=== PATIENT | female | born 1995 | race Caucasian/White ===

== ENCOUNTER 2016-10-28 12:07 | Emergency (ER) | payer MEDICAID ==
[~2016-10-28] VITALS: Ht 162.6 cm; Wt 63.0 kg
[2016-10-28 12:45] VITALS: BP 106/70
== END 2016-10-28 13:33 | disposition home or self-care (01) ==
LOC: ER 13:26
DX: J32.9 Chronic sinusitis, unspecified (principal); H66.92 Otitis media, unspecified, left ear; R19.7 Diarrhea, unspecified
CPT/HCPCS: 99283

== ENCOUNTER 2016-11-28 21:33 | Emergency (ER) | payer MEDICAID ==
[~2016-11-28] VITALS: Ht 160 cm; Wt 65.0 kg
[2016-11-29 04:17] VITALS: BP 120/76
== END 2016-11-29 08:46 | disposition home or self-care (01) ==
LOC: ER 11-29 08:46
DX: B00.9 Herpesviral infection, unspecified (principal); F12.10 Cannabis abuse, uncomplicated
CPT/HCPCS: 99283; Z7610

== ENCOUNTER 2016-12-27 21:04 | Emergency (ER) | payer MEDICAID ==
[~2016-12-27] VITALS: Ht 160 cm; Wt 59.0 kg
[2016-12-27 21:17] VITALS: BP 112/71
== END 2016-12-27 21:40 | disposition left against medical advice (07) ==
LOC: ER 21:27
DX: M79.604 Pain in right leg (principal); Z53.21 Procedure and treatment not carried out due to patient leaving prior to being seen by health care provider

== ENCOUNTER 2016-12-29 13:48 | Emergency (ER) | payer MEDICAID ==
[~2016-12-29] VITALS: Ht 160 cm; Wt 61.0 kg
[2016-12-29 13:56] VITALS: BP 118/70
== END 2016-12-29 19:23 | disposition left against medical advice (07) ==
LOC: ER 18:57
DX: Z53.21 Procedure and treatment not carried out due to patient leaving prior to being seen by health care provider (principal)

== ENCOUNTER 2017-01-25 13:04 | Emergency (ER) | payer MEDICAID ==
[~2017-01-25] VITALS: Ht 160 cm; Wt 61.0 kg
[2017-01-25] MEDS ORDERED: SODIUM CHLORIDE 0.9% 1,000 ML IV ONE (17:52)
[2017-01-25 18:57] LABS: CLARITY URINE CLEAR (CLEAR); COLOR URINE YELLOW (YELLOW); GLUCOSE URINE NEGATIVE (NEGATIVE); KETONES URINE NEGATIVE (NEGATIVE); LEUKOCYTE ESTERASE URINE TRACE (NEGATIVE); NITRITE URINE NEGATIVE (NEGATIVE); OCCULT BLOOD URINE NEGATIVE (NEGATIVE); PROTEIN URINE NEGATIVE (NEGATIVE); SPECIFIC GRAVITY URINE 1.025 (1.005-1.030); UROBILINOGEN URINE 0.2 E.U./dL (0.2-1.0)
[2017-01-25 19:15] LABS: *AMPHETAMINES SCREEN URINE NEGATIVE (NEGATIVE); *BARBITURATES SCREEN URINE NEGATIVE (NEGATIVE); *BENZODIAZEPINES SCREEN URINE NEGATIVE (NEGATIVE); *COCAINE SCREEN URINE NEGATIVE (NEGATIVE); CANNABINOID URINE SCREEN PRESUMTIVE POSITIVE (NEGATIVE); METHADONE URINE SCREEN NEGATIVE (NEGATIVE); OPIATES URINE SCREEN NEGATIVE (NEGATIVE); PHENCYCLIDINE URINE SCREEN NEGATIVE (NEGATIVE)
[2017-01-25 19:42] VITALS: BP 109/71
== END 2017-01-25 19:43 | disposition home or self-care (01) ==
LOC: ER 13:04
DX: K29.00 Acute gastritis without bleeding (principal); F12.10 Cannabis abuse, uncomplicated; R03.0 Elevated blood-pressure reading, without diagnosis of hypertension
CPT/HCPCS: 80305; 81001; 81025; 93005; 99285; Z7610; J7030

== ENCOUNTER 2017-04-28 08:32 | Emergency (ER) | payer MEDICAID ==
[~2017-04-28] VITALS: Ht 162.6 cm; Wt 73.0 kg
[2017-04-28] MEDS ORDERED: KETOROLAC 60MG/2ML VIAL IM STA (11:27)
[2017-04-28] MEDS ORDERED: BACITRACIN ZINC OINT UDPKT TOP ONE (11:30)
[2017-04-28] MEDS ORDERED: LIDOCAINE HCL 1% 20ML VIAL (Pyxis) INJ MC ONE (11:30)
[2017-04-28 11:51] VITALS: BP 102/62
== END 2017-04-28 13:20 | disposition home or self-care (01) ==
LOC: ER 09:37
DX: L05.01 Pilonidal cyst with abscess (principal); F17.210 Nicotine dependence, cigarettes, uncomplicated
CPT/HCPCS: 10060; 81025; 96372; 99283; J1885; J3490

== ENCOUNTER 2017-04-30 18:41 | Emergency (ER) | payer MEDICAID ==
[~2017-04-30] VITALS: Ht 162.6 cm; Wt 73.0 kg
[2017-04-30 18:51] VITALS: BP 110/68
== END 2017-05-01 02:25 | disposition left against medical advice (07) ==
LOC: ER 20:06
DX: Z53.21 Procedure and treatment not carried out due to patient leaving prior to being seen by health care provider (principal)

== ENCOUNTER 2017-05-01 11:59 | Emergency (ER) | payer MEDICAID ==
[~2017-05-01] VITALS: Ht 160 cm; Wt 73.0 kg
[2017-05-01] MEDS ORDERED: HYDROCODONE/ACETAMINOPHEN 5/325MG TABLET PO ONE (17:15)
[2017-05-01] MEDS ORDERED: TRAMADOL 50MG TABLET PO ONE (17:15)
[2017-05-01] MEDS ORDERED: BACITRACIN ZINC OINT UDPKT TOP ONE (17:15)
[2017-05-01 17:46] VITALS: BP 121/73
== END 2017-05-01 17:49 | disposition home or self-care (01) ==
LOC: ER 13:57
DX: Z48.817 Encounter for surgical aftercare following surgery on the skin and subcutaneous tissue (principal); F17.200 Nicotine dependence, unspecified, uncomplicated; R11.0 Nausea; F12.10 Cannabis abuse, uncomplicated
CPT/HCPCS: 99283

== ENCOUNTER 2020-12-23 07:56 | Inpatient (IN) | payer MEDICAID ==
[~2020-12-23] VITALS: Ht 160 cm; Wt 79.4 kg
[2020-12-23] MEDS ORDERED: CARBOPROST TROMETHAMINE 250 MCG/ML AMPUL IM PRN (08:45)
[2020-12-23] MEDS ORDERED: LIDOCAINE HCL 1% 20ML VIAL (Pyxis) INJ INFIL SCH (08:45)
[2020-12-23] MEDS ORDERED: MINERAL OIL 30ML BOTTLE PO SCH (08:45)
[2020-12-23] MEDS ORDERED: METHYLERGONOVINE MALEATE 0.2 MG/ML IM PRN (08:45)
[2020-12-23] MEDS ORDERED: NALOXONE HCL 0.4 MG/ML 1ML VIAL IM PRN (08:45)
[2020-12-23 09:05] LABS: BASOPHILS % 0.6 % (0.0-2.0); EOSINOPHILS % 0.9 % (0.0-5.0); HEMATOCRIT. 26.4 % (36.0-48.0); HEMOGLOBIN. 8.8 g/dL (12.0-16.0); LYMPHOCYTES % 16.3 % (20.0-50.0); MEAN CORPUSCULAR HEMOGLOBIN 22.2 pg (28.0-32.0); MEAN CORPUSCULAR VOLUME 66.9 fL (81.0-99.0); MEAN PLATELET VOLUME 7.4 fl (7.4-10.4); MONOCYTES % 7.9 % (2.0-8.0); NEUTROPHILS % 74.3 % (40.0-76.0); PLATELET 371 x1000/uL (130-400); RED BLOOD CELL COUNT 3.95 mill/uL (4.2-5.4)
[2020-12-23 09:06] LABS: CLARITY URINE CLEAR (CLEAR); COLOR URINE YELLOW (YELLOW); KETONES URINE NEGATIVE (NEGATIVE); LEUKOCYTE ESTERASE URINE 1+ (NEGATIVE); NITRITE URINE NEGATIVE (NEGATIVE); OCCULT BLOOD URINE NEGATIVE (NEGATIVE); PH URINE 6.5 (4.5-8.0); PROTEIN URINE NEGATIVE (NEGATIVE); SPECIFIC GRAVITY URINE 1.019 (1.005-1.030)
[2020-12-23] MEDS: LACTATED RINGERS 1,000 ML IV SCH ×3 (09:14→18:26)
[2020-12-23 09:24] LABS: PARTIAL THROMBOPLASTIN TIME 27.6 sec (23.4-31.0); PROTHROMBIN TIME 10.3 sec (9.6-11.0)
[2020-12-23 09:50] LABS: HEPATITIS B SURFACE ANTIGEN NEGATIVE
[2020-12-23 09:54] LABS: CANNABINOID URINE SCREEN NEGATIVE (NEGATIVE); OPIATES URINE SCREEN NEGATIVE (NEGATIVE); PHENCYCLIDINE URINE SCREEN NEGATIVE (NEGATIVE)
[2020-12-23 09:56] LABS: *AMPHETAMINES SCREEN URINE NEGATIVE (NEGATIVE); *BARBITURATES SCREEN URINE NEGATIVE (NEGATIVE); *BENZODIAZEPINES SCREEN URINE NEGATIVE (NEGATIVE); *COCAINE SCREEN URINE NEGATIVE (NEGATIVE); METHADONE URINE SCREEN NEGATIVE (NEGATIVE)
[2020-12-23] MEDS: MISOPROSTOL 100MCG TABLET VG PRN ×2 (10:30→14:26)
[2020-12-23] MEDS: BUTORPHANOL TARTRATE 2 MG/ML VIAL IV PRN ×2 (18:22→22:49)
[2020-12-23] MEDS: DEXT 5%/LR + PITOCIN 20UNITS/L 1,000 ML IV SCH (18:45)
[2020-12-23] MEDS ORDERED: ROPIVACAINE HCL/PF EPIDURAL 200 ML EPI SCH (21:00)
[2020-12-24] MEDS ORDERED: FENTANYL CITRATE/PF 50MCG/ML 2ML VIAL ONE (00:07)
[2020-12-24] MEDS ORDERED: ROPIVACAINE HCL/PF EPIDURAL 200 ML EPI ONE (00:07)
[2020-12-24] MEDS: LACTATED RINGERS 1,000 ML IV SCH ×3 (00:27→06:05)
[2020-12-24 08:02] LABS: PLATELET ESTIMATE NORMAL
[2020-12-24] MEDS ORDERED: LIDOCAINE HCL 2%/EPINEPHRINE 1:100,000 20 ML VIAL INFIL ONE (08:42)
[2020-12-24] MEDS ORDERED: ACETAMINOPHEN WITH CODEINE 300/30MG TABLET PO PRN (08:45)
[2020-12-24] MEDS ORDERED: DEXT 5%/LR + PITOCIN 20UNITS/L 1,000 ML IV SCH (08:45)
[2020-12-24] MEDS ORDERED: RHO(D) IMMUNE GLOBULIN 300 MCG/SYR IM PRN (08:45)
[2020-12-24] MEDS ORDERED: LANOLIN OINT 7GM TUBE TOP PRN (08:45)
[2020-12-24] MEDS ORDERED: BENZOCAINE/LANOLIN/ALOE VERA SPRAY TOP PRN (08:45)
[2020-12-24] MEDS ORDERED: BISACODYL 10MG SUPP PR PRN (08:45)
[2020-12-24] MEDS ORDERED: GLYCERIN/WITCH HAZEL LEAF MEDICATED PAD TOP PRN (08:45)
[2020-12-24] MEDS ORDERED: DIPHENHYDRAMINE 25MG CAPSULE PO PRN (08:45)
[2020-12-24] MEDS ORDERED: IBUPROFEN 400MG TABLET PO PRN (08:45)
[2020-12-24] MEDS ORDERED: HEMORRHOIDAL SUPP PR PRN (08:45)
[2020-12-24] MEDS ORDERED: IBUPROFEN 800MG TABLET PO PRN (08:45)
[2020-12-24] MEDS: DEXT 5%/LR + PITOCIN 20UNITS/L 1,000 ML IV SCH (10:23)
[2020-12-24 11:00] VITALS: BP 102/63
[2020-12-24 11:30] VITALS: BP 105/62
[2020-12-24 12:00] VITALS: BP 107/64
[2020-12-24] MEDS: MAGNESIUM/ALUMINUM HYDROXIDE/SIMETHICONE 30ML UDC PO SCH ×2 (12:30→20:51)
[2020-12-24] MEDS: SIMETHICONE 80MG TABLET CHEW PO SCH ×2 (13:00→20:52)
[2020-12-24 15:13] VITALS: BP 97/62
[2020-12-24 19:00] VITALS: BP 102/59
[2020-12-24] MEDS: DOCUSATE SODIUM 100MG CAPSULE PO SCH (20:52)
[2020-12-25 04:00] VITALS: BP 93/54
[2020-12-25 06:22] LABS: BASOPHILS % 0.5 % (0.0-2.0); EOSINOPHILS % 0.9 % (0.0-5.0); LYMPHOCYTES % 20.1 % (20.0-50.0); MEAN CORPUSCULAR HEMOGLOBIN 21.8 pg (28.0-32.0); MEAN CORPUSCULAR VOLUME 67.4 fL (81.0-99.0); MEAN PLATELET VOLUME 7.2 fl (7.4-10.4); MONOCYTES % 7.6 % (2.0-8.0); NEUTROPHILS % 70.9 % (40.0-76.0); PLATELET 283 x1000/uL (130-400); RED BLOOD CELL COUNT 3.16 mill/uL (4.2-5.4); RED CELL DISTRIBUTION WIDTH 17.6 % (11.6-14.6)
[2020-12-25 06:38] LABS: HEMATOCRIT. 21.3 % (36.0-48.0); HEMOGLOBIN. 6.9 g/dL (12.0-16.0)
[2020-12-25 08:18] VITALS: BP 103/69
[2020-12-25] MEDS: FERROUS SULFATE 325MG TABLET PO SCH ×2 (10:00→13:21)
[2020-12-25] MEDS: PRENATAL VIT/FE FUMARATE/FA TABLET PO SCH (10:00)
[2020-12-25] MEDS: SIMETHICONE 80MG TABLET CHEW PO SCH ×3 (10:00→20:52)
[2020-12-25] MEDS: MAGNESIUM/ALUMINUM HYDROXIDE/SIMETHICONE 30ML UDC PO SCH ×3 (10:00→20:52)
[2020-12-25 16:14] VITALS: BP 104/64
[2020-12-25 19:40] LABS: HEMATOCRIT 23.6 % (36.0-48.0); HEMOGLOBIN 7.8 g/dL (12.0-16.0); MEAN CORPUSCULAR HEMOGLOBIN 22.2 pg (28.0-32.0); MEAN CORPUSCULAR VOLUME 67.5 fL (81.0-99.0); PLATELET 385 x1000/uL (130-400); RED CELL DISTRIBUTION WIDTH 17.6 % (11.6-14.6)
[2020-12-25 20:00] VITALS: BP 107/62
[2020-12-25] MEDS: DOCUSATE SODIUM 100MG CAPSULE PO SCH (20:52)
[2020-12-26 04:30] VITALS: BP 105/71
[2020-12-26] MEDS ORDERED: IBUP-2030 PO (05:53)
[2020-12-26] MEDS: FERROUS SULFATE 325MG TABLET PO SCH (08:56)
[2020-12-26] MEDS: PRENATAL VIT/FE FUMARATE/FA TABLET PO SCH (08:56)
== END 2020-12-26 12:45 | disposition home or self-care (01) | DRG 560 ==
LOC: 8 EST LDRP 07:56 → OBSVTOIN 07:56 → 8EST 12-24 09:46
PROVIDERS: ADMIT Obstetrics & Gynecology; ATTEND Obstetrics & Gynecology
PROC: 10E0XZZ Delivery of Products of Conception, External Approach (ICD-10-PCS; principal; 2020-12-24)
PROC: 3E0R3BZ Introduction of Anesthetic Agent into Spinal Canal, Percutaneous Approach (ICD-10-PCS; 2020-12-24)
PROC: 00HU33Z Insertion of Infusion Device into Spinal Canal, Percutaneous Approach (ICD-10-PCS; 2020-12-24)
DX: O48.0 Post-term pregnancy (principal); Z37.0 Single live birth; D62 Acute posthemorrhagic anemia; O99.02 Anemia complicating childbirth; Z3A.40 40 weeks gestation of pregnancy; Z20.822 Contact with and (suspected) exposure to COVID-19
CPT/HCPCS: 36415; 76805; 80305; 81003; 85025; 85027; 86592; 86703; 86762; 86850; 86900; 87340; 87426; J0595; J2590; J2795; J3010; J3490; J7120; A4315